=== PATIENT | female | born 1980 | race Two or more races ===

== ENCOUNTER 2024-11-12 04:39 | Emergency (ER) | payer MEDICAID, OTHER ==
[~2024-11-12] VITALS: Ht 170.2 cm; Wt 89.0 kg
[2024-11-12 04:45] VITALS: BP 190/111; TEMP 98.5
[2024-11-12 04:55] VITALS: PULSE 101
[2024-11-12 05:00] VITALS: RESP 16; O2SAT 99
[2024-11-12] MEDS ORDERED: cloNIDine HCL 0.1 MG TAB PO ONE (05:00)
--- NOTE | 2024-11-12 06:50 | ECG ---
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
== END 2024-11-12 05:27 | disposition left against medical advice (07) ==
LOC: ER 04:39
DX: R06.02 Shortness of breath (principal); Z53.21 Procedure and treatment not carried out due to patient leaving prior to being seen by health care provider
CPT/HCPCS: 93005